=== PATIENT | male | born 1955 | race African-American/Black ===

== ENCOUNTER 2016-11-09 02:28 | Emergency (ER) | payer MEDICAID ==
[~2016-11-09] VITALS: Ht 172.7 cm; Wt 74.8 kg
[2016-11-09] MEDS ORDERED: IV NORMAL SALINE 1000 ML BAG IV ONE ×2 (02:45→04:30)
[2016-11-09] MEDS ORDERED: ONDANSETRON 4 MG/2 ML VIAL IV ONE (02:45)
[2016-11-09] MEDS ORDERED: HYDROMORPHONE 1 MG/1 ML DISP.SYRIN IV ONE ×4 (02:45→12:30)
[2016-11-09] MEDS ORDERED: ONDANSETRON 4 MG/2 ML VIAL ONE (02:49)
[2016-11-09] MEDS ORDERED: HYDROMORPHONE 1 MG/1 ML DISP.SYRIN ONE (02:49)
[2016-11-09] MEDS ORDERED: PANTOPRAZOLE SODIUM 40 MG VIAL IV ONE (03:00)
[2016-11-09] MEDS ORDERED: PANTOPRAZOLE SODIUM 40 MG VIAL ONE (03:00)
[2016-11-09] MEDS ORDERED: HYDROMORPHONE 2 MG/1 ML DISP.SYRIN ONE ×3 (03:04→12:45)
[2016-11-09 03:06] LABS: BASOPHILS % (AUTO) 0.1 % (0.0-2.0); EOSINOPHILS # (AUTO) 0.1 K/uL (0.0-0.7); EOSINOPHILS % (AUTO) 0.8 % (0.0-7.0); HEMATOCRIT 45.4 % (40-50); HEMOGLOBIN 14.1 G/DL (14.0-18.0); LYMPHOCYTES # (AUTO) 2.4 K/UL (0.8-4.8); LYMPHOCYTES % (AUTO) 12.7 % (20.5-51.5); MEAN CORPUSCULAR HEMOGLOBIN 21.6 UUG (27.0-31.0); MEAN CORPUSCULAR HGB CONC 31 g/dL (32.0-37.0); MEAN CORPUSCULAR VOLUME 69.4 FL (82.0-92.0); MONOCYTES # (AUTO) 1.1 K/UL (0.1-1.30); MONOCYTES % (AUTO) 6.1 % (0.0-11.0); NEUTROPHILS # (AUTO) 15.1 K/UL (1.8-8.9); NEUTROPHILS % (AUTO) 80.3 % (38.5-71.5); PLATELET COUNT (AUTO) 277 K/UL (150-450); WHITE BLOOD COUNT (AUTO) 18.7 K/UL (4.0-11.2)
[2016-11-09 03:15] LABS: RED BLOOD CELL COUNT(AUTO) 6.54 MIL/UL (4.7-6.1)
[2016-11-09 03:19] LABS: BILIRUBIN,DIRECT 0.2 mg/dL (0.0-0.2); BILIRUBIN,TOTAL 0.9 mg/dL (0.2-1.0); CREATININE 1.5 mg/dL (0.6-1.3); POTASSIUM 3.1 mmol/L (3.5-5.1); TOTAL PROTEIN, SERUM 8.9 g/dL (6.4-8.2)
[2016-11-09 04:19] LABS: *BILIRUBIN,URIN NEGATIVE (NEGATIVE); *BLOOD, URINE Trace-lysed (NEGATIVE); *CLARITY,URINE CLEAR (CLEAR); *COLOR,URINE YELLOW (YELLOW); *KETONES,URINE 3+ (NEGATIVE); *PROTEIN,URINE TRACE (NEGATIVE); *UROBILINOGEN,URINE 0.2 E.U./dl (NORMAL); LEUKOCYTE ESTERASE ,URINE NEGATIVE (NEGATIVE); NITRITE, URINE NEGATIVE (NEGATIVE); UGLUCOSE 2+ (NEGATIVE)
[2016-11-09] MEDS ORDERED: METRONIDAZOLE 500 MG/NS 100 ML PIGGYBACK IV ONE (04:30)
[2016-11-09] MEDS ORDERED: PIPERACILLIN SODIUM/TAZOBACTAM 3.375 G in IV DEXTROSE 5% 50 ML IV ONE (04:30)
--- NOTE | 2016-11-09 04:30 | NUR ---
PHYLLIS PLACED CALL TO DR. CAMPOVERDE, LEFT MESSAGE, AWAITING C/B...
[2016-11-09 04:37] LABS: RBC,URINE NONE SEEN /HPF (0-3)
[2016-11-09 04:38] LABS: BACTERIA,URINE NONE SEEN /HPF (NONE SEEN); SQUAMOUS EPITHELIAL CELL,UR NONE SEEN /HPF (NONE SEEN); WBC,URINE 0-3 /HPF (0-3)
[2016-11-09] MEDS ORDERED: METRONIDAZOLE 500 MG/NS 100ML 100 ML IV ONE (04:49)
[2016-11-09] MEDS ORDERED: PIPERACILLIN/TAZOBACTAM/D5W 50 ML IV ONE (04:49)
--- NOTE | 2016-11-09 04:50 | NUR ---
placed second call to DR. Clayton, left message on machine
--- NOTE | 2016-11-09 04:54 | NUR ---
Call placed to [facility]a [facility] answering service, will be paged.
[2016-11-09] MEDS ORDERED: POTASSIUM CHLORIDE 50 ML IV SCH (05:15)
[2016-11-09 05:18] LABS: BAND % (MANUAL) 11 % (0-10); EOSINOPHILS % (MANUAL) 1 % (0-8); LYMPHOCYTES % (MANUAL) 10 % (20-40); MONOCYTES % (MANUAL) 5 % (2-10); NEUTROPHILS % (MANUAL) 73 % (42-75)
--- NOTE | 2016-11-09 05:29 | NUR ---
3rd call placed, Dr. Clayton speaking with PHYLLIS.
[2016-11-09] MEDS ORDERED: WARF5TAB77 PO (05:32)
[2016-11-09] MEDS ORDERED: GLIP5TAB13 PO (05:32)
[2016-11-09] MEDS ORDERED: ATOR10TA PO (05:32)
[2016-11-09] MEDS ORDERED: METF500T4 PO (05:32)
--- NOTE | 2016-11-09 05:46 | NUR ---
[facility] placed to [facility], Dr. Nova will be paged.
[2016-11-09] MEDS ORDERED: IV NORMAL SALINE 250 ML IV ONE (05:47)
[2016-11-09] MEDS ORDERED: POTASSIUM CHLORIDE 50 ML ONE (05:47)
[2016-11-09] MEDS ORDERED: IOHEXOL 300MG/ML 100 ML INFUS..BTL ONE ×2 (05:47→06:10)
--- NOTE | 2016-11-09 05:50 | NUR ---
RIGHT AC IV infiltrated during IV contrast exam, ERMD notified, orders received.
[2016-11-09] MEDS ORDERED: HYDROMORPHONE 1 MG/1 ML DISP.SYRIN IV PRN (06:30)
[2016-11-09] MEDS ORDERED: Z GUARD REMEDY PASTE 57 GM TUBE TOP PRN (06:30)
[2016-11-09] MEDS ORDERED: ACETAMINOPHEN 325 MG TABLET PO PRN (06:30)
[2016-11-09] MEDS ORDERED: MAGNESIUM HYDROXIDE 30 ML LIQUID UDC PO PRN (06:30)
[2016-11-09] MEDS ORDERED: ONDANSETRON 4 MG/2 ML VIAL IV PRN (06:30)
[2016-11-09] MEDS ORDERED: HEPARIN SODIUM,PORCINE 5,000 UNITS/ML VIAL IV ONE (06:30)
[2016-11-09] MEDS ORDERED: HYDROCODONE/APAP 5-325MG TABLET PO PRN (06:30)
--- NOTE | 2016-11-09 06:47 | NUR ---
PHYLLIS spoke with Dr. Brantley (VASCULAR SURGEON)
[2016-11-09] MEDS ORDERED: HEPARIN SODIUM,PORCINE 5,000 UNITS/ML VIAL ONE (06:51)
--- NOTE | 2016-11-09 07:10 | NUR ---
Patient to be transferred, [facility] = no beds.
--- NOTE | 2016-11-09 07:16 | NUR ---
Faxed information to [facility] for potential transfer, awaiting response.
--- NOTE | 2016-11-09 07:27 | NUR ---
Faxed transfer information to [facility], awaiting response.
--- NOTE | 2016-11-09 07:27 | NUR ---
Dr Clayton at the bedside for eval and exam.
--- NOTE | 2016-11-09 07:34 | NUR ---
SPOKE TO [facility] AWAITING BED/MD REQUEST.
--- NOTE | 2016-11-09 07:35 | NUR ---
SPOKE TO SENIOR [employer] DEVELOPER AT [facility], NO ICU BED AVAILABLE AND WE HAVE TO CALL TO FIND A ADMITTING MD AND SURGEON TO ACCEPT THE PT.
--- NOTE | 2016-11-09 07:40 | NUR ---
CALLED [facility] FOR TRANSFER AND SPOKE TO HOWIE JACK FAXED FOR POSSIBLE TX. [facility] SPOKE TO ER MD AND NO BED AVAIL.
[2016-11-09 07:44] LABS: BASOPHILS # (AUTO) 0.1 K/uL (0.0-8.0); BASOPHILS % (AUTO) 0.5 % (0.0-2.0); EOSINOPHILS # (AUTO) 0.1 K/uL (0.0-0.7); EOSINOPHILS % (AUTO) 0.8 % (0.0-7.0); LYMPHOCYTES # (AUTO) 0.7 K/UL (0.8-4.8); LYMPHOCYTES % (AUTO) 4.4 % (20.5-51.5); MEAN CORPUSCULAR HEMOGLOBIN 21.6 UUG (27.0-31.0); MEAN CORPUSCULAR HGB CONC 31 g/dL (32.0-37.0); MONOCYTES # (AUTO) 0.9 K/UL (0.1-1.30); MONOCYTES % (AUTO) 5.5 % (0.0-11.0); NEUTROPHILS # (AUTO) 14.8 K/UL (1.8-8.9); NEUTROPHILS % (AUTO) 88.8 % (38.5-71.5); PLATELET COUNT (AUTO) 289 K/UL (150-450); WHITE BLOOD COUNT (AUTO) 16.6 K/UL (4.0-11.2)
[2016-11-09 07:51] LABS: CREATININE 1.1 mg/dL (0.6-1.3)
[2016-11-09 07:57] LABS: BILIRUBIN,TOTAL 0.6 mg/dL (0.2-1.0); TOTAL PROTEIN, SERUM 7.9 g/dL (6.4-8.2)
--- NOTE | 2016-11-09 08:00 | NUR ---
CONTACTED [facility] TRANSFER CENTER, SPOKE AND FAXED INFO TO [place]. AWAITING CALL BACK FROM ANY TRANSFER CENTER.
[2016-11-09 08:02] LABS: RED BLOOD CELL COUNT(AUTO) 6.03 MIL/UL (4.7-6.1)
[2016-11-09 08:03] LABS: HEMATOCRIT 42.2 % (40-50)
--- NOTE | 2016-11-09 08:19 | NUR ---
Patient is resting comfortably in bed with eyes closed, NAD noted.
[2016-11-09 08:23] LABS: BAND % (MANUAL) 11 % (0-10); LYMPHOCYTES % (MANUAL) 5 % (20-40); MONOCYTES % (MANUAL) 6 % (2-10); NEUTROPHILS % (MANUAL) 78 % (42-75)
--- NOTE | 2016-11-09 08:37 | NUR ---
Dr Babcock spoke to Dr Brantley(Vascular surgeon for [facility]). Soke to [facility] rep and info faxed per their request.
--- NOTE | 2016-11-09 09:07 | NUR ---
Spoke to [facility], pt needs to have an accepting MD at the facility, otherwise can not be transfered.
--- NOTE | 2016-11-09 10:00 | NUR ---
Pt is resting w/ both eyes closed, no c/o pain, SOB, VSS.
[2016-11-09] MEDS ORDERED: HEPARIN/D5W DRIP 500 ML IV ONE (10:45)
--- NOTE | 2016-11-09 11:00 | NUR ---
JEFFY CADENA DOUBLE CHECK/SIGN W/ QUYEN PICKARD.
--- NOTE | 2016-11-09 11:00 | NUR ---
STARTED PT ON 1250 U/HR, 25 ML/HR OF HEPRIN.
[2016-11-09] MEDS ORDERED: HEPARIN/D5W DRIP 500 ML ONE (11:04)
--- NOTE | 2016-11-09 11:43 | NUR ---
[facility] REP SPOKE TO ER STATING NO BED AVAIL.
--- NOTE | 2016-11-09 12:20 | NUR ---
BED INFO RECIEVED FROM [facility], REF # [id number].
--- NOTE | 2016-11-09 13:00 | NUR ---
ATTEMPTED X3 TO PLACE NG TUBE FOR PT, UNABLE TO PLACE, PT STARTED HAVING BLOODY DRAINGE FROM STEPHAN NARES. DR ESPITIA AWARE AND OK'S NOT TO ATTEMPT INSERTION.
--- NOTE | 2016-11-09 13:28 | NUR ---
REPORT GIVEN TO ELAINE AT [facility] , [facility] ETA IS 1400.
--- NOTE | 2016-11-09 13:33 | NUR ---
PT AWARE OF TX AND SIGNED TX PAPERWORK.
--- NOTE | 2016-11-09 14:35 | NUR ---
REPORT GIVEN TO EMT AND CCT RN, PT LEFT ER WITH INFUSING HEPRIN. VITAL STABLE ON TRANSFER. ALL BELONGING SENT W/ PT.
[2016-11-09] MEDS ORDERED: WARFARIN SODIUM 5 MG TABLET PO SCH (17:00)
== END 2016-11-09 14:43 | disposition short-term general hospital (02) ==
LOC: ER 02:33
DX: R10.30 Lower abdominal pain, unspecified (principal); I25.2 Old myocardial infarction; I25.10 Atherosclerotic heart disease of native coronary artery without angina pectoris; Z86.73 Personal history of transient ischemic attack (TIA), and cerebral infarction without residual deficits; Z95.5 Presence of coronary angioplasty implant and graft; Z79.01 Long term (current) use of anticoagulants
CPT/HCPCS: 36415; 70030-TC; 71010; 83605; 83690; 83735; 85025; 85730; 87040; 87086; 93005; A4663; C9113; J1170; J1644; J2405; J2543; J3480; J3490; J7030; J7040; J7050; Q9967